=== PATIENT | male | born 1945 | race Caucasian/White ===

== ENCOUNTER 2022-09-29 14:52 | Emergency (ER) | payer MEDICARE, OTHER, SELFPAY ==
[2022-09-29 15:06] VITALS: BP 147/59; PULSE 79; RESP 16; TEMP 37; O2SAT 98
--- NOTE | 2022-09-29 15:08 | ED.SKABFB ---
HPI - Skin/Abscess/Foreign Bdy General Chief complaint: Skin/Abscess/Foreign Body Stated complaint: Leg wound Source: patient and RN notes reviewed History of Present Illness HPI narrative: 77-year-old male presents urgent care with request for tetanus vaccination. Patient states this morning he was gardening and accidentally stuck his left medial calf with a knife. Patient states he does not know when his last tetanus vaccination occurred. Patient states he did not clean the area after incident. Patient denies any other injury and has no complaints. Related Data Home Medications Medication Instructions Recorded Confirmed amlodipine 5 mg tablet mg 09/29/22 furosemide 20 mg tablet mg 09/29/22 hydralazine 50 mg tablet mg 09/29/22 losartan 100 mg tablet mg 09/29/22 rosuvastatin 5 mg tablet mg 09/29/22 Allergies Allergy/AdvReac Type Severity Reaction Status Date / Time No Known Allergies Allergy Verified 09/29/22 15:06 Review of Systems Review of Systems: CONSTITUTIONAL: Denies fever, chills, or sweats. EYES: Denies visual changes, redness, or discharge. ENT: Denies otalgia and sore throat CARDIOVASCULAR: Denies chest pain, palpitations, or edema. RESPIRATORY: Denies cough or dyspnea. GASTROINTESTINAL: Denies abdominal pain, nausea, vomiting, or diarrhea. GENITOURINARY: Denies dysuria or hematuria. SKIN: wound to left calf MUSCULOSKELETAL: Denies back pain, joint pain, or myalgia. NEUROLOGIC: Denies headache, numbness, or weakness. Pertinent positives per HPI. PMFSH Comments At the time of my signature, I reviewed and agree with the nursing past medical, surgical, social, and family history. There is no relevant family history pertinent to the patient complaint. Exam Narrative: GENERAL: This is a well-nourished, well-developed patient, in no apparent distress. HEAD: normocephalic, atraumatic. EYES: Sclera clear/white. Vision is grossly intact. EARS: External ears normal, auditory canals clear and without drainage. Hearing grossly intact. NOSE: External nose normal with no obvious nasal discharge, nares without redness, no rhinorrhea. THROAT: Mucous membranes moist, posterior pharynx clear. NECK: Neck supple, non-tender without lymphadenopathy, masses or thyromegaly. CARDIOVASCULAR: Regular rate RESPIRATORY: 3. Stress SKIN: 0.5 cm puncture wound to left medial calf. no bleeding or drainage from wound. wound appears to be 0.5 cm in depth. NEURO: awake, alert, and oriented to person, place and time. There were no obvious focal neurologic abnormalities. EXTREMITIES: No clubbing, cyanosis, or edema. No joint tenderness, effusion, or edema noted. Course Course Level of Care: Express Care Visit Vital Signs Vital signs: Vital Signs Temperature 98.6 F 09/29/22 15:06 Pulse Rate 79 09/29/22 15:06 Respiratory Rate 16 09/29/22 15:06 Blood Pressure 147/59 H 09/29/22 15:06 Pulse Oximetry 98 09/29/22 15:06 Oxygen Delivery Room Air 09/29/22 15:06 Temperature 98.6 F 09/29/22 15:06 Pulse Rate 79 09/29/22 15:06 Respiratory Rate 16 09/29/22 15:06 Blood Pressure 147/59 H 09/29/22 15:06 Pulse Oximetry 98 09/29/22 15:06 Oxygen Delivery Room Air 09/29/22 15:06 reviewed MDM - Skin/Abscess/Foreign Bdy MDM Narrative Medical decision making narrative: Monitor your wound and if you notice any new or worsening symptoms, be seen by a medical provider. Differential Diagnosis Differential diagnosis: Likely cellulitis and other (laceration, need for tetanus vax) Critical Care Time Critical Care Time Critical Care Time: No Discharge Plan Discharge Clinical Impression: Tetanus toxoid vaccination administered at current visit, Puncture wound Patient Disposition: Home, Self-Care Condition: Stable Instructions: Antibiotic Form, Acute Wounds (DC) Additional Instructions: Monitor your wound and if you notice any new or worsening symptoms, be seen by a
[2022-09-29] MEDS: TETANUS,DIPHTHERIA,AC PERTUSSIS ADULT (0.5 ML) BOOSTRIX IM (15:32)
== END 2022-09-29 15:38 | disposition home or self-care (01) ==
PROVIDERS: Emergency Provider Nurse Practitioner Family; PCP Internal Medicine Rheumatology
DX: S81.832A Puncture wound without foreign body, left lower leg, initial encounter (principal); W26.0XXA Contact with knife, initial encounter; Z23 Encounter for immunization
CPT/HCPCS: 90471; 90715; 99213; G0463

== ENCOUNTER 2025-03-14 09:24 | Emergency (ER) | payer MEDICARE, OTHER, SELFPAY ==
--- NOTE | 2025-03-14 09:27 | ED.URI ---
HPI - URI/Sore Throat General Chief Complaint: Upper Respiratory Infection Stated Complaint: cough, congestion Time Seen by Provider: 03/14/25 09:26 Source: patient Mode of arrival: ambulatory Limitations: no limitations History of Present Illness HPI Narrative: Patient is an 80-year-old male who presents with 4 days of congestion, productive cough, ear fullness. Patient states his cough is keeping him up at night. Patient is a current everyday cigarette smoker. patient has not taken anything for symptoms statesthat is why came to you. Denies any fever, chills, nausea, vomiting, diarrhea, shortness of breath, chest pain. Related Data Home Medications ?Medication ?Instructions ?Recorded ?Confirmed ?Last Taken ?Type amlodipine 5 mg tablet 5 mg PO DAILY 09/29/22 03/14/25 Unknown History furosemide 20 mg tablet 20 mg PO DAILY 09/29/22 03/14/25 Unknown History hydralazine 50 mg tablet 50 mg PO DAILY 09/29/22 03/14/25 Unknown History losartan 100 mg tablet 100 mg PO DAILY 09/29/22 03/14/25 Unknown History rosuvastatin 5 mg tablet 5 mg PO DAILY 09/29/22 03/14/25 Unknown History Allergies Allergy/AdvReac Type Severity Reaction Status Date / Time No Known Allergies Allergy Verified 03/14/25 09:34 Review of Systems Review of Systems: All systems reviewed & are unremarkable except as noted in HPI and below Constitutional: Constitutional: Denies chills, Denies fatigue, Denies fever(s), Denies headache(s), Denies malaise and Denies weakness Eyes: Eyes: Denies blurry vision, Denies itchy eyes and Denies loss of vision ENT: Reports otalgia, Denies headache(s), Reports nasal congestion, Denies sinus pain and Denies sore throat Cardiovascular: Cardiovascular: Denies chest pain, Denies irregular heart rhythm and Denies dyspnea Respiratory: Respiratory: Reports cough and Denies dyspnea Gastrointestinal: Gastrointestinal: Denies abdominal pain, Denies diarrhea, Denies nausea and Denies vomiting Musculoskeletal: Musculoskeletal: Denies back pain, Denies myalgias and Denies arthralgias Integumentary/Breasts: Skin/Breast: Denies pruritus and Denies rash Neurologic: Denies headache(s), Denies loss of vision and Denies weakness Psychiatric: Psychiatric: Reports no additional psychiatric complaints Endocrine: Endocrine: Denies fatigue Allergic/Immunologic: Allergic/Immunologic: Denies itchy eyes PMFSH Comments At time of signature, agree with nursing past medical, surgical, social and family history. There is no relevant family history pertinent to the presenting complaint. Exam Const: General: cooperative, healthy appearing, comfortable, no acute distress and well nourished Nutritional Appearance: well nourished Orientation/consciousness: patient oriented x3 Limitations: no limitations HENMT: Head: normal to inspection, normocephalic and atraumatic Ears: hearing grossly normal bilaterally, external ears normal, TM's normal bilaterally, EAC's normal and no periauricular adenopathy Face/Nose/Sinus: Normal external nose present, Abnormal mucous membranes and turbinates present erythematous bilateral and diffuse, normal facial exam, sinuses nontender and face symmetric Face and sinus: normal facial exam, sinuses nontender and face symmetric Mouth: Yes Normal oral and palatal mucosa present, Yes lip normal, Yes tongue normal, Yes Normal salivary glands and ducts present, Yes oropharynx normal and Yes moist mucous membranes Teeth and gingiva: dentition normal Throat: posterior oropharynx normal, tonsils normal and uvula midline Eyes: General: appearance normal, both eyes and all related structures Alignment and Position: alignment normal and position normal Periorbital: periorbital findings normal Eyelids: eyelids normal Pupils: Equal, round and reactive pupils present Neck: Neck: normal visual inspection, full ROM, no lymphadenopathy and supple Chest: Chest palpation & inspection: normal inspection of the chest and normal palpation of entire chest wall Resp: Effort & Inspection: normal respiratory effort and able to speak in complete sentences Auscultation: clear to auscultation bilaterally, no crackles, no rales, no rhonchi and no wheezes Cardio: Rate: regular rate Rhythm: regular rhythm Heart sounds: S1 normal heart sound present and S2 normal heart sound present GI: Inspection: normal to inspection Skin: General skin exam: normal color and no rashes or lesions noted Neuro: General: patient oriented x3 and moves all extremities Cranial nerves: Yes Equal, round and reactive pupils present Speech: normal speech Gait exam (Neuro): Normal gait present Extrem: General: normal to inspection, full ROM and no edema Psych: Appearance: grossly normal and well kempt Mental Status: mental status grossly normal Speech and movement: Normal speech and movement present Affect: normal affect Attitude: cooperative Thought process: Normal thought process present Course Course Emergency Course: Discharge instructions reviewed with patient, as well as provided in writing per nursing staff. The instructions also include specific and strict return/GO TO THE ER as well as f/u information. All questions have been answered, and the patient deny any further questions with discharge and discharge plan. Portions of this record may have been created with voice recognition software Level of Care: Express Care Visit Vital Signs Vital signs: Reviewed MDM - URI/Sore Throat MDM Narrative Medical decision making narrative: Based on patient history and findings will treat with azithromycin, Flonase and Tessalon Perles Pt well hydrated appearing, in no respiratory distress, hemodynamically stable. Recommend supportive care. The patient is stable at time of discharge the clinical impression was discussed and the patient was given the opportunity to ask questions, which were addressed as completely as possible given the information available at present. Anticipatory guidance and return to care precautions were discussed and the importance of primary care follow-up was stressed and encouraged. The patient voiced understanding of the plan, indications to return, and the need for follow-up. Exam findings show no acute concerns or changes Patient is appropriate for outpatient treatment and follow-up. Differential diagnosis considered: Turk virus, strep pharyngitis, allergic rhinitis, upper respiratory tract infection, sinusitis, rhinosinusitis, nasopharyngitis. viral pharyngitis, otitis media, otitis externa, otitis effusion, foreign body, cerumen impaction, viral syndrome, and influenza.? Medical Records Attestation: I reviewed the patient's medical records. Discharge Plan Discharge Clinical Impression: Upper respiratory infection with cough and congestion Patient Disposition: Home Condition: Stable Instructions: Upper Respiratory Infection (ED) Additional Instructions: Take antibiotic as prescribed. Use Tessalon Perles as needed for cough. Other symptomatic treatments include: -Alternate Tylenol and Motrin per package directions for fever or pain: Tylenol 650-1000mg by mouth every 4-6 hours. Do not exceed 4000mg in 24 hours. Advil (Ibuprofen) 600 mg by mouth every 6 hours. Do not exceed 2400mg in 24 hours. 8 AM: Tylenol 11 AM: Ibuprofen 2 PM: Tylenol 5 PM: Ibuprofen 8 PM: Tylenol 11 PM: Ibuprofen 2 AM: Tylenol 5 AM: Ibuprofen -Antihistamine medication such as Benadryl at night and Zyrtec/Claritin/[place] during the day can help improve symptoms. -Use Flonase twice a day for 5 days then daily to help reduce the inflammation and dry up your sinuses. -You can also use Sudafed or Mucinex. Be sure to drink plenty of water with these medications at least 8 ounces with every dose and it is important to drink 8 to 10 glasses of water per day. Water is a natural decongestant -Eat and drink things that are easy to swallow, like tea or soup, or popsicles. -Oral rinses such as: Salt water gargles and/or may use topical anesthetic (eg. Chloraseptic spray) or lozenges to relieve dryness or throat pain). -Frequent hand washing or hand public health technologist is one of the best ways to prevent spread of infection. -Using a vaporizer or humidifier at night will also help thin secretions and help with coughing up phlegm. Call your Primary Care Doctor and make a follow-up appointment in 3 days. If your cough worsens, you develop a fever greater than 103, you develop shaking chills, a fast heartbeat, trouble breathing and/or feel you are are breathing much faster than usual, call your Primary Care Doctor or go to the ER. Patient Language: Togolese Prescriptions: New azithromycin 250 mg tablet See Rx Instructions .ROUTE .COMPLEX Qty: 6 0RF Rx Instructions: For 250 mg dose pack: take 500 mg today (day 1), then 250 mg for 4 days (days 2-5) benzonatate 100 mg capsule 100 mg PO BID PRN (Reason: cough) Qty: 14 0RF fluticasone propionate [Flonase Allergy Relief] 50 mcg/actuation spray,suspension 1 spray intranasal DAILY Qty: 16 0RF Rx Instructions: administer into each nostril No Action amlodipine 5 mg tablet 5 mg PO DAILY hydralazine 50 mg tablet 50 mg PO DAILY furosemide 20 mg tablet 20 mg PO DAILY losartan 100 mg tablet 100 mg PO DAILY rosuvastatin 5 mg tablet 5 mg PO DAILY Follow-up/Referrals: Fatmata,Diana Godoy MD [Primary Care Provider, Unknown] - 3 Days Time of Disposition: 09:54
[2025-03-14 09:37] VITALS: BP 138/56; PULSE 79; RESP 16; TEMP 37.2; O2SAT 99
== END 2025-03-14 10:08 | disposition home or self-care (01) ==
PROVIDERS: Emergency Provider Nurse Practitioner Family; PCP Internal Medicine Rheumatology
DX: J06.9 Acute upper respiratory infection, unspecified (principal); R05.9 Cough, unspecified; F17.210 Nicotine dependence, cigarettes, uncomplicated; I10 Essential (primary) hypertension; E78.00 Pure hypercholesterolemia, unspecified; K21.9 Gastro-esophageal reflux disease without esophagitis
CPT/HCPCS: 99213; G0463

== ENCOUNTER 2025-03-24 11:35 | Emergency (ER) | payer MEDICARE, OTHER, SELFPAY ==
--- NOTE | ~2025-03-24 | XR_ITS ---
EXAM/PROCEDURE: XR abdomen/kub 1V HISTORY: constipation/abdomen pain for few days COMPARISON: None available. TECHNIQUE: KUB FINDINGS: Scattered loops of partially gas dilated bowel present with no grossly distended loops of bowel or large amount of free air. Lung bases clear. No gross visceromegaly. Vascular calcifications noted. 3 x 2 mm calcification also present overlying the left transverse processes of L1, L2 appears to be outside the renal shadow. Visualized lung bases appear clear. Diffuse degenerative changes throughout the bones. IMPRESSION: Nonspecific bowel gas pattern with no gross acute process identified. Vascular calcifications and a 3 mm calcification adjacent to the left L1-2 transverse processes of uncertain origin. Reviewed, dictated and finalized at location A. NTIFIC PUBLICATIONS EDITOR IMPRESSION: Nonspecific bowel gas pattern with no gross acute process identified. Vascular calcifications and a 3 mm calcification adjacent to the left L1-2 transverse pr ocesses of uncertain origin.
--- NOTE | 2025-03-24 11:36 | ED.GENADULT ---
HPI - General Adult General Chief complaint: Nausea/Vomiting/Diarrhea Stated complaint: Constipation Time Seen by Provider: 03/24/25 11:36 Source: patient Mode of arrival: ambulatory Limitations: no limitations History of Present Illness HPI narrative: Pt is an 80 y/o male presenting with c/o constipation. Reports small amount of water like BM this morning, unable to tell me day of last normal BM. Denies any recent dietary changes. Denies any previous abd surgeries, obstructions. Denies N,V. 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 Denies blood in stool. NO abd pain. No additional complaints. Related Data Home Medications ?Medication ?Instructions ?Recorded ?Confirmed ?Last Taken ?Type amlodipine 5 mg tablet 5 mg PO DAILY 09/29/22 03/14/25 Unknown History furosemide 20 mg tablet 20 mg PO DAILY 09/29/22 03/14/25 Unknown History hydralazine 50 mg tablet 50 mg PO DAILY 09/29/22 03/14/25 Unknown History losartan 100 mg tablet 100 mg PO DAILY 09/29/22 03/14/25 Unknown History rosuvastatin 5 mg tablet 5 mg PO DAILY 09/29/22 03/14/25 Unknown History gabapentin 100 mg capsule mg 03/24/25 Unknown History pantoprazole 40 mg tablet,delayed mg PO 03/24/25 Unknown History release Allergies Allergy/AdvReac Type Severity Reaction Status Date / Time No Known Allergies Allergy Verified 03/24/25 11:39 Review of Systems Review of Systems: CONSTITUTIONAL: Denies body aches, fever, chills, or sweats. EYES: Denies visual changes, redness, or discharge. ENT: Denies rhinorrhea, congestion, sore throat, or otalgia. CARDIOVASCULAR: Denies chest pain, palpitations, or edema. RESPIRATORY: Denies cough or dyspnea. GASTROINTESTINAL: Reports constipation. Denies abdominal pain, nausea, vomiting, or diarrhea. GENITOURINARY: Denies dysuria or hematuria. SKIN: Denies rash, itching, or wounds. MUSCULOSKELETAL: Denies back pain, joint pain, or myalgia. NEUROLOGIC: Denies headache, numbness, tingling, or weakness. PSYCH: Denies depression or anxiety. All systems reviewed & are unremarkable except as noted in HPI and below Exam Narrative: GENERAL: Well-appearing, well-nourished, and in no acute distress. HEAD: Normocephalic, atraumatic. EYES: EOMI. No redness or drainage. Conjunctivae normal. ENT: Mucous membranes pink and moist. NECK: Normal AROM. Supple. No lymphadenopathy. CHEST: No respiratory distress. Clear to auscultation. HEART: Regular rate and rhythm. No murmur appreciated. Normal peripheral pulses. ABDOMEN: Soft, nontender, nondistended, normal active bowel sounds. MUSCULOSKELETAL: No bony tenderness. EXTREMITIES: Normal range of motion. No edema. SKIN: Warm, dry, no rash. Capillary refill normal. Normal skin turgor. NEURO: No focal deficits. Alert and oriented x3. Gait steady. PSYCH: Normal affect. No signs of depression or anxiety. Course Course Level of Care: Express Care Visit Vital Signs Vital signs: Vital Signs Temperature 98.5 F 03/24/25 11:47 Pulse Rate 86 03/24/25 11:47 Respiratory Rate 20 03/24/25 11:47 Blood Pressure 150/61 H 03/24/25 11:47 Pulse Oximetry 98 03/24/25 11:47 Oxygen Delivery Room Air 03/24/25 11:47 Temperature 98.5 F 03/24/25 11:47 Pulse Rate 86 03/24/25 11:47 Respiratory Rate 20 03/24/25 11:47 Blood Pressure 150/61 H 03/24/25 11:47 Pulse Oximetry 98 03/24/25 11:47 Oxygen Delivery Room Air 03/24/25 11:47 MDM MDM Narrative Medical decision making narrative: Discussed elevated blood pressure readings with patient and advised daily BP monitoring and f/u with PCP if persisting. Differential Diagnosis Differential Diagnosis: obstruction/surgical abd, constipation Imaging Data Radiologist's impression: ITS Impressions Abdomen X-Ray 03/24/25 11:59 IMPRESSION: Nonspecific bowel gas pattern with no gross acute process identified. Vascular calcifications and a 3 mm calcification adjacent to the left L1-2 transverse processes of uncertain origin. Discharge Plan Discharge Clinical Impression: HTN (hypertension), Vascular calcification Constipation Qualifiers: Constipation type: other constipation type Qualified Code(s): K59.09 - Other constipation Patient Disposition: Home Condition: Stable Instructions: Antibiotic Form, Constipation (ED), High Fiber Diet (ED) Additional Instructions: Increase your fiber and water intake. Begin using Miralax per the package instructions. Go straight to ER should your symptoms become worse or should any new symptoms develop Patient Language: Danish Prescriptions: No Action amlodipine 5 mg tablet 5 mg PO DAILY hydralazine 50 mg tablet 50 mg PO DAILY furosemide 20 mg tablet 20 mg PO DAILY losartan 100 mg tablet 100 mg PO DAILY rosuvastatin 5 mg tablet 5 mg PO DAILY pantoprazole 40 mg tablet,delayed release (DR/EC) PO gabapentin 100 mg capsule Follow-up/Referrals: Fatmata,Diana Godoy MD [Primary Care Provider, Unknown] - 03/25/25 Time of Disposition: 12:09
[2025-03-24 11:47] VITALS: BP 150/61; PULSE 86; RESP 20; TEMP 36.9; O2SAT 98
== END 2025-03-24 12:15 | disposition home or self-care (01) ==
PROVIDERS: Emergency Provider Registered Nurse; PCP Internal Medicine Rheumatology
DX: I10 Essential (primary) hypertension (principal); I70.90 Unspecified atherosclerosis; K59.00 Constipation, unspecified
CPT/HCPCS: 74018; 99213; G0463

== ENCOUNTER 2025-04-10 13:33 | Emergency (ER) | payer MEDICARE, OTHER, SELFPAY ==
--- NOTE | ~2025-04-10 | XR_ITS ---
EXAMINATION: XR chest 2V DATE: 04/10/2025 14:34 INDICATION: Cough, shortness of breath. TECHNIQUE: Frontal and lateral views of the chest were obtained. COMPARISON: None. FINDINGS: Heart size is normal. Severe atherosclerotic aorta. Lungs do not show acute findings. Granuloma mid right lung. IMPRESSION: 1. No acute pulmonary findings. Severe atherosclerotic aorta. Mildly hyperexpanded lungs and granuloma right lung. Reviewed, dictated and finalized at location T. ECHNICIAN IMPRESSION: 1. No acute pulmonary findings. Severe atherosclerotic aorta. Mildly hyperexpan ded lungs and granuloma right lung.
[2025-04-10 14:19] VITALS: BP 136/60; PULSE 85; RESP 16; TEMP 37.7; O2SAT 95
--- NOTE | 2025-04-10 14:25 | ED.URI ---
HPI - URI/Sore Throat General Chief Complaint: Upper Respiratory Infection Stated Complaint: cough Time Seen by Provider: 04/10/25 14:30 Source: patient Mode of arrival: ambulatory Limitations: no limitations History of Present Illness HPI Narrative: Ludin is a 80-year-old male patient presenting to the clinic today with complaints of cough and chest congestion x3 days. He reports his was recently diagnosed with influenza A. Has a productive cough with white phlegm. States the he is coughing so hard that it is causing him sore throat, abdominal discomfort, and chest discomfort. MD elicited complaint: sore throat and nasal congestion Related Data Home Medications ?Medication ?Instructions ?Recorded ?Confirmed ?Last Taken ?Type amlodipine 5 mg tablet 5 mg PO DAILY 09/29/22 03/14/25 Unknown History furosemide 20 mg tablet 20 mg PO DAILY 09/29/22 03/14/25 Unknown History hydralazine 50 mg tablet 50 mg PO DAILY 09/29/22 03/14/25 Unknown History losartan 100 mg tablet 100 mg PO DAILY 09/29/22 03/14/25 Unknown History rosuvastatin 5 mg tablet 5 mg PO DAILY 09/29/22 03/14/25 Unknown History gabapentin 100 mg capsule mg 03/24/25 Unknown History pantoprazole 40 mg tablet,delayed mg PO 03/24/25 Unknown History release Allergies Allergy/AdvReac Type Severity Reaction Status Date / Time No Known Allergies Allergy Verified 04/10/25 15:09 Review of Systems Review of Systems: Pertinent positives per HPI. Patient denies any fever, chills, rash, headache, visual changes, dizziness, shortness of breath, chest pain, palpitations, nausea, vomiting, diarrhea, constipation, abdominal pain, or any urinary issues. PMFSH Comments At the time of my signature, I reviewed and agree with the nursing past medical, surgical, social, and family history. There is no relevant family history pertinent to the patient complaint. Exam Narrative: General: Well-developed, well nourished, in no apparent distress Head: Normocephalic, atraumatic Eyes: Pupils equally round and reactive to light bilaterally, EOM intact, sclera and conjunctive clear, no discharge, lids normal Ears: TMs intact and clear, ear canals clear, no drainage, grossly hearing normal. Nose: Nares patent, clear discharge, mild inflammation, no sinus tenderness. Mouth: Oral pharynx without lesions or masses, good dentition, MMM. Neck: Supple, trachea midline, no enlargement of anterior or posterior cervical nodes, no thyroid masses or goiter palpable. Cardio: Regular rate and rhythm, s1 and s2 normal, no murmur appreciated. Resp: Lung sounds diminished, no rhonchi, rales, wheezing or rubs Course Course Level of Care: Express Care Visit Vital Signs Vital signs: Vital Signs Temperature 37.7 C H 04/10/25 14:19 Pulse Rate 85 04/10/25 14:19 Respiratory Rate 16 04/10/25 14:19 Blood Pressure 136/60 04/10/25 14:19 Pulse Oximetry 95 04/10/25 14:19 Oxygen Delivery Room Air 04/10/25 14:19 Temperature 37.7 C H 04/10/25 14:19 Pulse Rate 85 04/10/25 14:19 Respiratory Rate 16 04/10/25 14:19 Blood Pressure 136/60 04/10/25 14:19 Pulse Oximetry 95 04/10/25 14:19 Oxygen Delivery Room Air 04/10/25 14:19 MDM MDM Narrative Medical decision making narrative: At the time of visit patient is resting comfortably on the exam table. Patient appears to be nontoxic. Complaints of cough and chest congestion x3 days. He reports his was recently diagnosed with influenza A. Has a productive cough with white phlegm. States the he is coughing so hard that it is causing him sore throat, abdominal discomfort, and chest discomfort. On exam patient has bilateral TMs intact and clear, clear nasal drainage, mild anterior turbinate inflammation, oral pharynx normal, heart rates regular rate and rhythm, lung sounds are diminished in the bases oxygen saturations 95% on room air. Patient is able speak in full sentences. COVID and influenza testing was ordered. Chest x-ray was ordered. Labs: COVID and influenza testing was negative. Diagnostics: Chest x-ray was negative for any acute cardiopulmonary process. Mildly hyperexpanded lungs and granuloma of right lung Plan: I suspect patient has bronchitis. Prescription for albuterol inhaler and azithromycin was sent to the pharmacy. Supportive measures were discussed with the patient and they voiced understanding discharge instructions and agrees to treatment plan. Return precautions reviewed Differential Diagnosis Differential Diagnosis: Differential diagnostic considerations for upper respiratory infection include upper respiratory infection, croup, otitis media, sinusitis, viral infection, bronchitis, influenza, pharyngitis, strep, uvulitis. Lab Data Labs: Lab Results 04/10/25 Range/Units 14:16 POC Influenza A Ag Negative (Negative) POC Influenza B Ag Negative (Negative) POC SARS CoV-2 Ag Negative (Negative) Imaging Data Radiologist's impression: ITS Impressions Chest X-Ray 04/10/25 14:36 IMPRESSION: 1. No acute pulmonary findings. Severe atherosclerotic aorta. Mildly hyperexpanded lungs and granuloma right lung. Discharge Plan Discharge Clinical Impression: Bronchitis Patient Disposition: Home Condition: Stable Instructions: Antibiotic Form, Acute Bronchitis (ED) Additional Instructions: Take prescription medications only as prescribed-albuterol inhaler and azithromycin Increase fluids and stay well hydrated May take Tylenol or motrin as directed on bottle for pain/fever May use Flonase 1 spray in each nare daily May take OTC antihistamines such as Zyrtec or Claritin daily as directed on bottle May apply Vicks vapor rub to chest to open sinuses Sinus rinses for congestion Cepacol spray, cough drops, throat lozenges, warm tea with honey/lemon, gargle salt water to soothe throat BRAT diet for diarrhea Clear liquids x 24 hours then advance as tolerated for nausea/vomiting Go to the ED if you develop a worsening in your condition- high fever not controlled by Tylenol or Motrin, dehydration, weakness, lethargy, shortness of breath, or chest pain. Follow up with your PCP in 3-5 days if symptoms persist. Patient Language: German Prescriptions: New azithromycin 250 mg tablet See Rx Instructions .ROUTE .COMPLEX Qty: 6 0RF Rx Instructions: For 250 mg dose pack: take 500 mg today (day 1), then 250 mg for 4 days (days 2-5) albuterol sulfate 90 mcg/actuation HFA aerosol inhaler 2 puff inhalation Q4-6H PRN (Reason: shortness of breath or wheezing) 30 Days Qty: 8.5 0RF No Action amlodipine 5 mg tablet 5 mg PO DAILY hydralazine 50 mg tablet 50 mg PO DAILY furosemide 20 mg tablet 20 mg PO DAILY losartan 100 mg tablet 100 mg PO DAILY rosuvastatin 5 mg tablet 5 mg PO DAILY pantoprazole 40 mg tablet,delayed release (DR/EC) PO gabapentin 100 mg capsule Follow-up/Referrals: Fatmata,Diana Godoy MD [Primary Care Provider, Unknown] Time of Disposition: 14:52 Quality NIHSS Nursing Documentation ED NIHSS nursing documentation: reviewed/agree
[2025-04-10 14:36] LABS: EDCOVIDSCREEN Negative (Negative); EDINFLUASCREEN Negative (Negative); EDINFLUBSCREEN Negative (Negative)
== END 2025-04-10 14:58 | disposition home or self-care (01) ==
PROVIDERS: Emergency Provider Nurse Practitioner Family; PCP Internal Medicine Rheumatology
DX: J40 Bronchitis, not specified as acute or chronic (principal); Z20.822 Contact with and (suspected) exposure to COVID-19; I11.0 Hypertensive heart disease with heart failure; I50.9 Heart failure, unspecified; E78.00 Pure hypercholesterolemia, unspecified; K21.9 Gastro-esophageal reflux disease without esophagitis
CPT/HCPCS: 71046; 87426; 87804; 99213; G0463